=== PATIENT | female | born 1980 | race Caucasian/White ===

== ENCOUNTER 2018-12-23 14:21 | Emergency (ER) | payer OTHER ==
[2018-12-23 15:09] VITALS: BP 141/91
--- NOTE | 2018-12-23 15:19 | UC ---
General HPI - HPI Summary HPI Summary: pt is c/o a itchy-burning rash to her chest plus a spot on her L forearm and R side of neck for the past few days. she self tx with a topical steroid then an antifungal cream with no relief. rash has spread since onset. she admits to messing around with some camejo and consuming drinks with [place] in them. she denies current/recent illness. - History of Current Complaint Chief Complaint: UCRash Stated Complaint: SKIN COMPLAINT Time Seen by Provider: 12/23/18 15:10 Hx Obtained From: Patient Hx Last Menstrual Period: 12/10/18 Onset/Duration: Gradual Onset Timing: Constant Pain Intensity: 0 Associated Signs & Symptoms: Negative: Fever - Allergy/Home Medications Allergies/Adverse Reactions: Allergies Allergy/AdvReac Type Severity Reaction Status Date / Time insect bites Allergy Swelling Uncoded 12/23/18 15:10 Home Medications: Home Medications Cetirizine* [ZyrTEC 10 MG TAB*] 10 mg PO Q12HR PRN 12/23/18 [History Confirmed 12/23/18] Ketoconazole 2 % CREAM (NF) [Nizoral 2% CREAM (NF)] 1 applic TOPICAL BID PRN [History Confirmed 12/23/18] PMH/Surg Hx/FS Hx/Imm Hx - Additional Past Medical History Additional PMH: allergies - Surgical History Surgical History: Yes Surgery Procedure, Year, and Place: 2009 left knee meniscus - Family History Known Family History: Positive: Other - "sensitive skin" - Social History Occupation: Employed Full-time Alcohol Use: Weekly Alcohol Amount: 6 Substance Use Type: None Smoking Status (MU): Never Smoked Tobacco Review of Systems All Other Systems Reviewed And Are Negative: No Constitutional: Negative: Fever, Chills, Fatigue Skin: Positive: Rash Musculoskeletal: Negative: Arthralgia, Myalgia Physical Exam Triage Information Reviewed: Yes Appearance: Well-Appearing Vital Signs: Initial Vital Signs Temp 98.5 F 12/23/18 15:05 Pulse 81 12/23/18 15:05 Resp 18 12/23/18 15:05 BP 141/91 12/23/18 15:05 Pulse Ox 99 12/23/18 15:05 Vital Signs Reviewed: Yes Eyes: Positive: Conjunctiva Clear ENT: Positive: Normal ENT inspection Neck: Positive: Supple, No Lymphadenopathy Respiratory: Positive: No respiratory distress Musculoskeletal: Positive: ROM Intact Neurological: Positive: Alert Psychological: Positive: Age Appropriate Behavior Skin Exam: Normal Skin: Positive: Rashes - L forearm has a liner 2cm vesicular-weepy rash on pink base. chest has 4 small areas of papular to small vesicular rash on anterior chest areas. 2cm linear pink rash R side of neck. no burrows. not petechial or scaley. Course/Dx - Differential Dx - Multi-Symptom Differential Diagnoses: Other - no concern for fungal or bacterial infection. no concern for infestation. doubt citru photosensitivity. - Diagnoses Provider Diagnosis: Dermatitis Discharge - Sign-Out/Discharge Documenting (check all that apply): Patient Departure All imaging exams completed and their final reports reviewed: No Studies - Discharge Plan Condition: Stable Disposition: HOME Prescriptions: methylPREDNISolone [Medrol Dosepak 4 MG*] 0 mg PO .SEE MONTY INSTRUCTION #1 tab Patient Education Materials: Dermatitis (ED) Referrals: Aishwarya Horton [Medical Doctor] - As Soon As Possible Additional Instructions: avoid any new products. stop all prior treatments. apply Calamine Lotion to areas that are blistered or weepy. - Billing Disposition and Condition Condition: STABLE Disposition: Home
== END 2018-12-23 15:45 | disposition home or self-care (01) ==
LOC: UCCORT 14:21
DX: L30.9 Dermatitis, unspecified (principal)
CPT/HCPCS: 99202; G0463